=== PATIENT | male | born 2000 | race Two or more races ===

== ENCOUNTER 2023-11-03 10:39 | Emergency (ER) | payer SELFPAY ==
[~2023-11-03] VITALS: Ht 170.2 cm; Wt 80.0 kg
[2023-11-03 11:57] VITALS: BP 132/83; PULSE 82; RESP 20; TEMP 98.5; O2SAT 96
== END 2023-11-03 12:19 | disposition home or self-care (01) ==
LOC: ER 10:39
DX: Z00.00 Encounter for general adult medical examination without abnormal findings (principal)

== ENCOUNTER 2024-03-29 22:55 | Emergency (ER) | payer MEDICAID, OTHER ==
[~2024-03-29] VITALS: Ht 170.2 cm; Wt 89.5 kg
--- NOTE | 2024-03-29 23:53 | ED.PDOC ---
History of Present Illness(SKN HPI Comments 24-year-old male presents to ER with complaints of dog bite to right ear x 40 minutes. Patient reports that he was bit by his "neighbor's dog on his right ear 40 minutes prior to arrival to ER and sustained lacerations to right ear at that time. Denies head injury/LOC. Patient currently complains of 10/10 right ear pain, denying any other pain. Denies use of medications for current symptoms. Patient presents to ER ambulatory on arrival, alert and oriented x4, with steady gait, in no distress and states he is up-to-date on his tetanus shot and is unsure if the dog is up-to-date on vaccines. Denies headache, dizziness, neck pain, nausea/vomiting, hearing changes, tinnitus, numbness/tingling or any further symptoms/complaints Chief Complaint: Animal Bite Time Seen by MD: 23:37 Primary Care Provider: UNKNOWN History of Present Illness: Nurses Notes, Medications, Allergies Allergies: Coded Allergies: No Known Drug Allergy (Verified Allergy, Unknown, 11/03/23) Home Meds Active Scripts Ibuprofen (Ibuprofen) 800 Mg Tab, 1 TAB PO TID PRN, #30 TAB 0 Refills Prov:CLAUDINE YANEZ 03/30/24 Amoxicillin & Pot Clavulanate (Amoxicillin/Potassium Cla) 875 Mg Tab, 1 TAB PO BID for 7 Days, #14 TAB 0 Refills Prov:CLAUDINE YANEZ 03/30/24 Information Source: Patient Mode of Arrival: Ambulatory Tetanus: UTD Past Medical History PAST MEDICAL HISTORY: Denies Surgical History: Denies all surgeries Family History Family History: Unknown Social History Lives In: Home Constitutional: denies: chills, diaphoresis, fatigue, fever, malaise, sweats, weakness, others EENTM: reports: others (As stated in HPI) Respiratory: denies: cough, hemoptysis, orthopnea, SOB at rest, shortness of breath, SOB with excertion, stridor, wheezing, others Cardiovascular: denies: chest pain, dizzy spells, diaphoresis, Dyspnea on exertion, edema, irregular heart beat, left arm pain, lightheadedness, palpitations, PND, syncope, others Gastrointestinal: denies: abdomen distended, abdominal pain, blood streaked bowels, constipated, diarrhea, dysphagia, difficulty swallowing, hematemesis, melena, nausea, poor appetite, poor fluid intake, rectal bleeding, rectal pain, vomiting, others Genitourinary: denies: burning, dysuria, flank pain, frequency, hematuria, incontinence, penile discharge, penile sore, pain, testicle pain, testicle swelling, urgency, others Neurological: denies: dizziness, fainting, headache, left sided numbness, left sided weakness, numbness, paresthesia, pre-existing deficit, right sided numbness, right sided weakness, seizure, speech problems, tingling, tremors, weakness, others Musculoskeletal: denies: back pain, gout, joint pain, joint swelling, muscle pain, muscle stiffness, neck pain, others Integumetry: reports: others (As stated in HPI) Allergic/Immunocompromised: denies: Difficulty Healing, Frequent Infections, Hives, Itching, others Hematologic/Lymphatic: denies: anemia, blood clots, easy bleeding, easy bruising, swollen glands, others Endocrine: denies: excessive hunger, excessive sweating, excessive thirst, excessive urination, flushing, intolerance to cold, intolerance to heat, unexplained weight gain, unexplained weight loss, others Psychiatric: denies: anxiety, bipolar disorder, depression, hopeless, panic disorder, schizophrenia, sleepless, suicidal, others Physical Exam General Appearance: No Apparent Distress, Obese HEENT: PERRL/EOMI, Pharynx Normal, TMs Normal, Other (1 - 2cm and 1-1 cm laceration noted to right upper anterior earlobe. 1-5cm postauricular laceration also noted. Slight TTP/swelling/erythema noted to sites of laceration, no FB apprecaited, no auricular hematoma noted, no TTP to right mastoid process noted. TMs normal bilaterally. 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 Was a procedure done?: Yes Sedation Sedation?: No Laceration Repair : Location Right ear Length 1 - 2cm and 1-1 cm laceration noted to right upper anterior earlobe. 1- 5cm postauricular laceration also noted Anesthetic: Lidocaine (1%), Without epi Laceration Repair Prep: Saline, Betadine, by Irrigation (without any signs of foreign body) Laceration Repair Wound Comple: epidermis/dermis repair Laceration Repair: Number of sutures (Total of 11 sutures placed-all loosely approximated), Size (5-0), Nylon, Simple, Non-adherent gauze (Pressure dressing applied) Informed consent obtained: Yes Risks, benefits, and alternati: Yes Differential Diagnosis (INTG) Differential Diagnosis: Abrasion Differential Diagnosis: Puncture Wound, Retained Foreign Body, Other (Auricular hematoma) X-Ray, Labs, Meds, VS Vital Signs Date Time Temp Pulse Resp B/P (MAP) Pulse Ox O2 Delivery O2 Flow Rate FiO2 03/30/24 01:58 98 Room Air 0 03/29/24 23:15 99.4 102 20 117/69 (85) 98 Current Medications Medications (Trade) Dose Ordered Sig/Jozef Route Start Time Stop Time Status Last Admin Acetaminophen/ Hydrocodone Bitart (Delmita 5/325MG Tab) 1 tab ONCE ONCE PO 03/29/24 23:45 03/29/24 23:46 DC 03/30/24 01:09 Ondansetron HCl (Zofran Po) 4 mg ONCE ONCE PO 03/29/24 23:45 03/29/24 23:46 DC 03/30/24 01:08 Ceftriaxone Sodium (Rocephin) 1,000 mg ONCE ONCE IM 03/29/24 23:45 03/29/24 23:46 DC 03/30/24 01:11 PATIENT: BUDDY LU ACCT: [id number] UNIT: [id number] : 2000 LOC: ER ROOM / BED: / AGE / SEX: 24 / M ADM STATUS: REG ER SERVICE [id number] ORDERING PHYSICIAN: CLAUDINE YANEZ PROCEDURE(s): FAC2C - MAXILLOFACIAL WITHOUT REASON: right ear pain/laceration ORDER NUMBER(s): [id number], ACCESSION NUMBER(s): [id number] EXAM: CT MAXILLOFACIAL WITHOUT CLINICAL HISTORY: right ear pain/laceration TECHNIQUE: Multiple contiguous axial images were obtained of the facial bones without intravenous contrast. Sagittal and coronal reformations were obtained. This exam was performed according to our departmental dose optimization program. Up-to-date CT equipment and radiation dose reduction techniques are utilized as appropriate. Comparison: None FINDINGS: The mastoid air cells and visualized paranasal sinuses are well-aerated aside from a mucous retention cyst or polyp in the left maxillary sinus. The globes and orbits are normal in appearance without CT evidence of orbital hemorrhage. The extraocular muscles are intact. No facial, mandibular, or orbital wall fracture is identified. The temporomandibular joints are maintained. There is a periapical lucency within the 1st right mandibular molar. There is soft tissue emphysema in the right ear lobe in in the right postauricular soft tissues IMPRESSION: 1. No evidence of acute facial fracture or orbital hemorrhage. 2. Soft tissue emphysema in the right ear lobe and in the right postauricular soft tissues likely related to reported laceration. 3. Periapical lucency in the 1st right mandibular molar ATED BY: PARVEZ BAIRD MD DICTATED DATE/TIME: 03/30/2453 SIGNED BY: PARVEZ BAIRD MD SIGNED DATE/TIME: 03/30/2453 CC: CT maxillofacial without contrast reviewed Delmita 5/325 mg p.o. ordered Zofran 4 mg p.o. ordered Rocephin 1 g IM ordered Patient had improvement in symptoms and in no distress prior to discharge Wound care/cleaning discussed and advised Advised to follow up in two days for wound check Advised to follow up in five days for removal of sutures Advised to follow up with PCP and ENT in 1-2 days Patient verbalized understanding and agreeable with current plan of care Advised to return to ER immediately if symptoms worsen Images Reviewed?: Images reviewed and evaluated by me Time of 1ST Reevaluation: 23:52 Reevaluation 1ST: N/A Patient Education/Counseling: Diagnosis, Treatment, Prognosis, Need For Follow Up Family Education/Counseling: No Family Present Departure 1 Departure Time of Disposition: 02:42 Impression: Primary Impression: Laceration of right ear lobe Qualified Codes: S01.311A - Laceration without foreign body of right ear, initial encounter Disposition: HOME / SELF CARE / HOMELESS Condition: Stable e-Prescriptions Ibuprofen (Ibuprofen) 800 Mg Tab 1 TAB PO TID PRN, #30 TAB 0 Refills Prov: CLAUDINE YANEZ 03/30/24 Amoxicillin & Pot Clavulanate (Amoxicillin/Potassium Cla) 875 Mg Tab 1 TAB PO BID for 7 Days, #14 TAB 0 Refills Prov: CLAUDINE YANEZ 03/30/24 Critical Care Note Critical Care Time?: No Stability Stability form required: No Heart Score Heart Score: Heart Score Response (Comments) Value History N/A 0 EKG N/A 0 Age N/A 0 Risk Factors N/A 0 Troponin N/A 0 Total 0 CLAUDINE YANEZ Mar 29, 2024 23:53
--- NOTE | 2024-03-30 00:57 | DVH ---
EXAM: CT MAXILLOFACIAL WITHOUT CLINICAL HISTORY: right ear pain/laceration TECHNIQUE: Multiple contiguous axial images were obtained of the facial bones without intravenous con trast. Sagittal and coronal reformations were obtained. This exam was performed according to our depa rtmental dose optimization program. Up-to-date CT equipment and radiation dose reduction techniques a re utilized as appropriate. Comparison: None FINDINGS: The mastoid air cells and visualized paranasal sinuses are well-aerated aside from a mucous retention cyst or polyp in the left maxillary sinus. The globes and orbits are normal in appearance without CT evidence of orbital hemorrhage. The extraocular muscles are intact. No facial, mandibular, or orbita l wall fracture is identified. The temporomandibular joints are maintained. There is a periapical lilliam ency within the 1st right mandibular molar. There is soft tissue emphysema in the right ear lobe in i n the right postauricular soft tissues IMPRESSION: 1. No evidence of acute facial fracture or orbital hemorrhage. 2. Soft tissue emphysema in the right ear lobe and in the right postauricular soft tissues likely rel ated to reported laceration. 3. Periapical lucency in the 1st right mandibular molar
[2024-03-30] MEDS: ONDANSETRON ODT 4 MG TAB PO ONE (01:08)
[2024-03-30] MEDS: HYDROcodone-ACET 5/325MG TAB PO ONE (01:09)
[2024-03-30] MEDS: cefTRIAXone SOD 1,000 MG VL IM ONE (01:11)
[2024-03-30 01:43] VITALS: BP 116/77; PULSE 78; RESP 18; TEMP 98
[2024-03-30 01:58] VITALS: O2SAT 98
[2024-03-30] MEDS ORDERED: AMOX875T4 PO (02:46)
[2024-03-30] MEDS ORDERED: IBUP-1456 PO (02:46)
== END 2024-03-30 03:18 | disposition home or self-care (01) ==
LOC: ER 22:55
DX: S01.311A Laceration without foreign body of right ear, initial encounter (principal); Z79.899 Other long term (current) drug therapy; W54.0XXA Bitten by dog, initial encounter; Y93.89 Activity, other specified; Y92.89 Other specified places as the place of occurrence of the external cause; Y99.8 Other external cause status
CPT/HCPCS: 12015; 70486; 96372; 99285; J0696; Q0162

== ENCOUNTER 2024-04-08 19:50 | Emergency (ER) | payer MEDICAID ==
[~2024-04-08] VITALS: Ht 170.2 cm; Wt 86.0 kg
[~2024-04-08 19:50] MED LIST: AMOX875T4 PO; IBUP-1456 PO
[2024-04-08 20:22] VITALS: BP 103/57
--- NOTE | 2024-04-08 21:33 | ED.PDOC ---
History of Present Illness(SKN HPI Comments THIS IS A 24-YEAR-OLD MALE PATIENT PRESENTS TO THE ED CHIEF COMPLAINT SUTURE REMOVAL. PATIENT REPORTS AROUND 8-10 DAYS AGO WAS SEEN HERE IN THE ER FOR DOG BITE TO HIS RIGHT EAR 11 SUTURES WERE NECESSARY TO CLOSE LACERATIONS. NOTES NO REDNESS, ERYTHEMA OR PAIN IN THE AREA DENIES ANY DRAINAGE FEVER OR CHILLS. Chief Complaint: Suture Removal Time Seen by MD: 20:05 Primary Care Provider: UNKNOWN History of Present Illness: Nurses Notes, Medications, Allergies Allergies: Coded Allergies: No Known Drug Allergy (Verified Allergy, Unknown, 11/03/23) Home Meds Active Scripts Ibuprofen (Ibuprofen) 800 Mg Tab, 1 TAB PO TID PRN, #30 TAB 0 Refills Prov:CLAUDINE YANEZ 03/30/24 Amoxicillin & Pot Clavulanate (Amoxicillin/Potassium Cla) 875 Mg Tab, 1 TAB PO BID for 7 Days, #14 TAB 0 Refills Prov:CLAUDINE YANEZ 03/30/24 Information Source: Patient Mode of Arrival: Ambulatory Past Medical History PAST MEDICAL HISTORY: Denies Surgical History: Denies all surgeries Family History Family History: Reviewed,noncontributory to illness, Unknown Social History Smoker: Non-Smoker Alcohol: Denies ETOH Use Drugs: Denies Drug Use Lives In: Home Constitutional: denies: chills, diaphoresis, fatigue, fever, malaise, sweats, weakness, others EENTM: denies: blurred vision, double vision, ear bleeding, ear discharge, ear drainage, ear pain, ear ringing, eye pain, eye redness, hearing loss, mouth pain, mouth swelling, nasal discharge, nose bleeding, nose congestion, nose pain, photophobia, tearing, throat pain, throat swelling, voice changes, others Respiratory: denies: cough, hemoptysis, orthopnea, SOB at rest, shortness of breath, SOB with excertion, stridor, wheezing, others Cardiovascular: denies: chest pain, dizzy spells, diaphoresis, Dyspnea on exertion, edema, irregular heart beat, left arm pain, lightheadedness, palpitations, PND, syncope, others Gastrointestinal: denies: abdomen distended, abdominal pain, blood streaked bowels, constipated, diarrhea, dysphagia, difficulty swallowing, hematemesis, melena, nausea, poor appetite, poor fluid intake, rectal bleeding, rectal pain, vomiting, others Genitourinary: denies: burning, dysuria, flank pain, frequency, hematuria, incontinence, penile discharge, penile sore, pain, testicle pain, testicle swelling, urgency, others Neurological: denies: dizziness, fainting, headache, left sided numbness, left sided weakness, numbness, paresthesia, pre-existing deficit, right sided numbness, right sided weakness, seizure, speech problems, tingling, tremors, weakness, others Musculoskeletal: denies: back pain, gout, joint pain, joint swelling, muscle pain, muscle stiffness, neck pain, others Integumetry: reports: others (ELEVEN SUTURES RIGHT EAR TO BE REMOVED); denies: bruises, change in color, change in hair/nails, dryness, laceration, lesions, lumps, rash, wounds Allergic/Immunocompromised: denies: Difficulty Healing, Frequent Infections, Hives, Itching, others Hematologic/Lymphatic: denies: anemia, blood clots, easy bleeding, easy bruising, swollen glands, others Endocrine: denies: excessive hunger, excessive sweating, excessive thirst, excessive urination, flushing, intolerance to cold, intolerance to heat, unexplained weight gain, unexplained weight loss, others Psychiatric: denies: anxiety, bipolar disorder, depression, hopeless, panic disorder, schizophrenia, sleepless, suicidal, others Physical Exam General Appearance: No Apparent Distress, Normal HEENT: Pharynx Normal, TMs Normal, Other (NOTED 11 SUTURES INTACT RIGHT EAR WITH GOOD ADHERENCE. NO NOTED ERYTHEMA DRAINAGE. LACERATIONS WITH GOOD APPROXIMATION.) Neck: Full Range of Motion, Non-Tender, Normal, Normal Inspection Respiratory: Chest Non-Tender, Lungs Clear, No Accessory Muscle Use, No Respiratory Distress, Normal Breath Sounds Cardiovascular: No Edema, No JVD, No Murmur, No Gallop, Normal Peripheral Pulses, Regular Rate/Rhythm Breast Exam: Deferred Gastrointestinal: No Organomegaly, Non Tender, No Pulsatile Mass, Normal Bowel Sounds, Soft Genitalia: Deferred Pelvic: Deferred Rectal: Deferred Extremities: No calf tenderness, Normal capillary refill, Normal inspection, Normal range of motion, Non-tender, No pedal edema Musculoskeletal : Apperance: Normal 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 Was a procedure done?: Yes Sedation Sedation?: No Informed consent obtained: Yes Other Procedure Procedure SUTURE REMOVAL RIGHT EAR Indication 8-10 DAYS WITH SUTURES LACERATIONS HEALED Anesthetic NONE Prep NONE Success 11 SUTURES REMOVED SUCCESSFULLY LACERATIONS WITH GOOD APPROXIMATION STERI-STRIPS APPLIED PATIENT TOLERATED PROCEDURE WELL WITH NO BLOOD LOSS Informed consent obtained: Yes Risks, benefits, and alternati: Yes Differential Diagnosis (INTG) Differential Diagnosis: Laceration X-Ray, Labs, Meds, VS Vital Signs Date Time Temp Pulse Resp B/P (MAP) Pulse Ox O2 Delivery O2 Flow Rate FiO2 04/08/24 20:22 98.4 72 16 103/57 (72) 98 X-Ray, Labs, Meds, VS Comment SEE PROCEDURE NOTE. STERI-STRIPS APPLIED ADVISED PATIENT NOT TO PULL HIM OFF WHILE IN THE FALL HIM OFF ON THEIR OWN. ADVISED TO FOLLOW UP WITH HIS PCP 2-3 DAYS NECESSARY ER RETURN PRECAUTIONS GIVEN. PATIENT INDICATED UNDERSTANDING AGREES WITH DISCHARGE PLAN OF CARE. Time of 1ST Reevaluation: 21:28 Reevaluation 1ST: Improved Patient Education/Counseling: Diagnosis, Treatment, Prognosis, Need For Follow Up Family Education/Counseling: No Family Present Departure 1 Departure Time of Disposition: 21:28 Impression: Primary Impression: Encounter for removal of sutures Disposition: HOME / SELF CARE / HOMELESS Condition: Stable Discharged With: Self Critical Care Note Critical Care Time?: No Stability Stability form required: BENNY Castillo Apr 08, 2024 21:33
[2024-04-08 21:36] VITALS: PULSE 72; RESP 16; O2SAT 98
== END 2024-04-08 21:41 | disposition home or self-care (01) ==
LOC: ER 19:50
DX: S01.311D Laceration without foreign body of right ear, subsequent encounter (principal); Z48.02 Encounter for removal of sutures; Z79.899 Other long term (current) drug therapy; W54.0XXD Bitten by dog, subsequent encounter